=== PATIENT | female | born 1995 | race Caucasian/White ===

== ENCOUNTER 2019-05-19 19:07 | Emergency (ER) | payer OTHER ==
[2019-05-19] MEDS: IBUPROFEN 600 MG TAB PO (20:55)
== END 2019-05-19 22:16 | disposition home or self-care (01) ==
LOC: FTE 19:07
DX: S90.121A Contusion of right lesser toe(s) without damage to nail, initial encounter (principal); X50.1XXA Overexertion from prolonged static or awkward postures, initial encounter; Y92.59 Other trade areas as the place of occurrence of the external cause
CPT/HCPCS: 73610; 73610-RT; 73630; 99283-25